=== PATIENT | female | born 1980 | race Caucasian/White ===

== ENCOUNTER → 2023-08-14 09:42 | Outpatient (REF) | payer BC, SELFPAY | LOC: WDC 09:42 | PROVIDERS: ATTENDING PHYSICIAN Obstetrics & Gynecology; FAMILY PHYSICIAN Nurse Practitioner Family | DX: N64.4 Mastodynia (principal); N64.59 Other signs and symptoms in breast; Z80.3 Family history of malignant neoplasm of breast | CPT/HCPCS: 76642; 77062; 77066 ==

== ENCOUNTER → 2024-11-22 17:43 | Outpatient (REF) | payer BC, SELFPAY | LOC: WDC 17:43 | PROVIDERS: ATTENDING PHYSICIAN Nurse Practitioner Women's Health; FAMILY PHYSICIAN Nurse Practitioner Family | DX: Z12.31 Encounter for screening mammogram for malignant neoplasm of breast (principal) | CPT/HCPCS: 77063; 77067 ==